=== PATIENT | male | born 1960 | race Caucasian/White ===

== ENCOUNTER 2017-04-02 00:05 | Emergency (ER) | payer SELFPAY ==
--- NOTE | ~2017-04-02 | EKG ---
PATIENT: MARYA ANDREWS UNIT #: [id number] Ventricular Rate: 77 BPM Atrial Rate: 77 BPM P-R Interval: 134 ms QRS Duration: 70 ms Q-T Interval: 392 ms QTC Calculation(Bezet): 443 ms P Bob White: 21 degrees Calculated R Bob White: -4 degrees Calculated T Bob White: 47 degrees Diagnosis Line: Normal sinus rhythm Diagnosis Line: Normal ECG Diagnosis Line: No previous ECGs available Diagnosis Line: Confirmed by BERRY GONZALES MD ([id number]) on Diagnosis Line: 04/07/2017 8:29:45 AM INTERPRETING MD: JANET GARCIA
--- NOTE | ~2017-04-02 | CR72 ---
[facility]. [facility] A Service of [facility] RADIOLOGY TEXT RESULTS PATIENT: MARYA ANDREWS LOCATION: SED : 64 UNIT #: [id number] AGE: [address]: Payal Guzman MD SEX: M ORDER DR: [id number] [place] [id number] E MR#: [id number] Acc #: [id number] NAME: MARYA ANDREWS : 1960 SEX: M STUDY DATE/TIME: 04/02/2017 0:44 UNIT: SED ROOM: STUDY DESCRIPTION: CR Chest Single View Portable Attending Physician: Payal Guzman M.D. Ordering Physician: Payal Guzman M.D. MEDICAL IMAGING REPORT This report is preliminary unless electronic signature is present. EXAM Portable chest INDICATIONS Chest pain 30 minutes prior to admission. COMPARISON 08/03/16 FINDINGS A portable view of the chest was obtained. The heart size and vascularity are normal, the lungs are clear and the bones are unremarkable. IMPRESSION No active disease. Dictated by... Villa Bledsoe M.D. THIS IS AN ELECTRONICALLY VERIFIED REPORT Villa Bledsoe M.D. at 04/02/2017 2:12 AM LESTER/elkin TD: 04/02/2017 01:36 JOB #: [id number] MEDICAL IMAGING REPORT Page 1 of 1
[2017-04-02 00:29] LABS: BASOPHIL% 0.4 % (0-2.5); EOSINOPHIL# 0.4 X10e3 (0-0.7); EOSINOPHIL% 4.7 % (0.0-7.0); HEMATOCRIT 42.7 % (38.0-50.0); HEMOGLOBIN 14.7 gm/dL (13.0-16.0); LYMPHOCYTE# 3.4 X10e3 (1.0-3.5); LYMPHOCYTE% 44.2 % (17.0-45.0); MEAN CORPUSCULAR HEMOGLOBIN 32.3 PG (28-34); MEAN CORPUSCULAR HGB CONC 34.3 g/dL (30-36); MEAN PLATELET VOLUME 7.2 FL (6.5-11.5); MONOCYTE# 0.5 X10e3 (0-1.0); MONOCYTE% 6.2 % (3.0-12.0); NEUTROPHIL# 3.4 X10e3 (1.5-7.1); NEUTROPHIL% 44.5 % (40-75); PLATELET COUNT 189 X10e3 (140-420); RED BLOOD COUNT 4.54 X10e (3.90-5.60); RED CELL DISTRIBUTION WIDTH 13.1 % (11.0-15.5); WHITE BLOOD COUNT 7.7 X10e3 (4.0-10.5)
[2017-04-02 00:30] LABS: DIFF IND NO
[2017-04-02 00:46] LABS: POC - CKMB 2.8 ng/mL (0.0-7.9)
[2017-04-02 00:47] LABS: POC - TROPONIN <0.05 ng/mL (<=0.05)
[2017-04-02 00:49] LABS: ALBUMIN SERUM 4.3 g/dL (3.5-5.0); BILIRUBIN, DIRECT 0.1 mg/dL (0.0-0.2); BILIRUBIN,INDIRECT 0.6 mg/dL (0.0-0.9); BILIRUBIN,TOTAL 0.7 mg/dL (0.2-2.0); BUN/CREATININE RATIO 27.27; CALCIUM SERUM 9.2 mg/dL (8.4-10.2); CREATININE SERUM 1.1 mg/dL (0.6-1.4); GLOM FILT RATE Estimated 75.7 mL/min (>60); POTASSIUM 3.7 mmol/L (3.5-5.1); PROTEIN TOTAL SERUM 7.9 g/dL (6.0-8.3)
[2017-04-02 02:32] LABS: POC - CKMB 4.2 ng/mL (0.0-7.9); POC - TROPONIN <0.05 ng/mL (<=0.05)
== END 2017-04-02 02:47 | disposition home or self-care (01) ==
LOC: SED 00:05
PROVIDERS: Emergency Medicine
DX: R07.2 Precordial pain (principal); F17.200 Nicotine dependence, unspecified, uncomplicated
CPT/HCPCS: 36415; 71010; 80048; 80076; 82550; 82553; 83690; 83880; 84484; 85025; 93005; 96360; 99285